=== PATIENT | female | born 1960 | race Two or more races ===

== ENCOUNTER 2019-02-13 07:54 | Emergency (ER) | payer SELFPAY ==
[~2019-02-13] VITALS: Ht 162.6 cm; Wt 90.0 kg
[2019-02-13] MEDS ORDERED: FLUORESCEIN SODIUM 1MG/STRIP LEFTEYE ONE (09:00)
[2019-02-13] MEDS ORDERED: TETRACAINE 0.5% OPHTH DROPS 4ML LEFTEYE ONE (09:00)
[2019-02-13] MEDS ORDERED: IBUPROFEN 600MG TABLET PO ONE (09:00)
[2019-02-13 10:06] VITALS: BP 142/60
== END 2019-02-13 10:10 | disposition home or self-care (01) ==
LOC: ER 08:02
DX: S05.02XA Injury of conjunctiva and corneal abrasion without foreign body, left eye, initial encounter (principal); X58.XXXA Exposure to other specified factors, initial encounter; Y93.89 Activity, other specified; Y92.89 Other specified places as the place of occurrence of the external cause; I10 Essential (primary) hypertension
CPT/HCPCS: 99283

== ENCOUNTER 2023-03-04 10:04 | Inpatient (IN) | payer OTHER ==
[~2023-03-04] VITALS: Ht 165.1 cm; Wt 97.5 kg
[2023-03-04 10:55] LABS: HEMATOCRIT. 33.5 % (36.0-48.0); HEMOGLOBIN. 10.5 g/dL (12.0-16.0); MEAN CORPUSCULAR HGB CONC 31.5 g/dL (31.0-37.0); MEAN CORPUSCULAR VOLUME 76.4 fL (81.0-99.0); MEAN PLATELET VOLUME 7.7 fl (7.4-10.4); PLATELET 332 x1000/uL (130-400); RED BLOOD CELL COUNT 4.38 mill/uL (4.2-5.4); RED CELL DISTRIBUTION WIDTH 15.9 % (11.6-14.6); WHITE BLOOD COUNT 3.7 x1000/uL (4.5-11.0)
[2023-03-04 10:57] LABS: DIFFERENTIAL COMMENT 1
[2023-03-04 11:13] LABS: ALANINE AMINOTRANSFERASE 12 IU/L (10-49); ALBUMIN 4.2 g/dL (3.2-4.8); ASPARTATE AMINOTRANSFERASE 18 IU/L (<34); BILIRUBIN TOTAL 0.4 mg/dL (0.1-1.0); CALCIUM 9.4 mg/dL (8.7-10.4); CARBON DIOXIDE 26 mEq/L (21-32); CHLORIDE 108 mEq/L (98-107); CREATININE 1.1 mg/dL (0.6-1.0); GLUCOSE 105 mg/dL (70-105); POTASSIUM 4.2 mEq/L (3.5-5.1); PROTEIN TOTAL 7.5 g/dL (6.0-8.3); SODIUM 140 mEq/L (136-145); UREA NITROGEN BLOOD 11 mg/dL (9-23)
[2023-03-04] MEDS ORDERED: ACETAMINOPHEN 325MG TABLET PO ONE (13:15)
[2023-03-04 13:16] LABS: ANISOCYTOSIS 1+; HYPOCHROMASIA 1+; MICROCYTOSIS 1+; PLATELET ESTIMATE NORMAL
[2023-03-04 17:01] LABS: TROPONIN I HIGH SENSITIVITY < 4 ng/L (3.0-34)
[2023-03-04] MEDS ORDERED: ACETAMINOPHEN 325MG TABLET PO NR (20:00)
[2023-03-04 22:00] VITALS: BP 165/69; PULSE 76; RESP 17; TEMP 97.9
[2023-03-05] VITALS (7 sets, daily range): BP systolic 124–184; BP diastolic 41–93; PULSE 56–68; RESP 17–18; TEMP 97.5–97.9
[2023-03-05] MEDS ORDERED: HYDROCODONE/ACETAMINOPHEN 5/325MG TABLET PO PRN (03:30)
[2023-03-05] MEDS ORDERED: ONDANSETRON HCL 4MG/2ML INJ IV PRN (03:30)
[2023-03-05] MEDS ORDERED: ACETAMINOPHEN 325MG TABLET PO PRN (03:30)
[2023-03-05 06:46] LABS: BASOPHILS % 0.5 % (0.0-2.0); DIFFERENTIAL COMMENT 0; EOSINOPHILS % 1.5 % (0.0-5.0); HEMATOCRIT. 32.6 % (36.0-48.0); HEMOGLOBIN. 10.5 g/dL (12.0-16.0); LYMPHOCYTES % 47.6 % (20.0-50.0); MEAN CORPUSCULAR HEMOGLOBIN 24.6 pg (28.0-32.0); MEAN CORPUSCULAR HGB CONC 32.2 g/dL (31.0-37.0); MEAN CORPUSCULAR VOLUME 76.2 fL (81.0-99.0); MEAN PLATELET VOLUME 7.7 fl (7.4-10.4); MONOCYTES % 10.2 % (2.0-8.0); NEUTROPHILS % 40.2 % (40.0-76.0); PLATELET 331 x1000/uL (130-400); RED BLOOD CELL COUNT 4.28 mill/uL (4.2-5.4); RED CELL DISTRIBUTION WIDTH 15.3 % (11.6-14.6)
[2023-03-05 07:16] LABS: CALCIUM 9.2 mg/dL (8.7-10.4); CARBON DIOXIDE 24 mEq/L (21-32); CHLORIDE 106 mEq/L (98-107); CHOLESTEROL 175 mg/dL (<200); CREATININE 1.1 mg/dL (0.6-1.0); GLUCOSE 100 mg/dL (70-105); HDL CHOLESTEROL 37 mg/dL (>65); LDL CHOLESTEROL 160 mg/dL (5-100); POTASSIUM 4.1 mEq/L (3.5-5.1); SODIUM 139 mEq/L (136-145); THYROID STIMULATING HORMONE 3.01 uIU/mL (0.55-4.78); TRIGLYCERIDE 152 mg/dL (0-150); UREA NITROGEN BLOOD 12 mg/dL (9-23)
[2023-03-05] MEDS: ENOXAPARIN 30MG/0.3ML SYR SUBCUT SCH ×2 (09:21→22:07)
[2023-03-05] MEDS ORDERED: CLOP-31 PO (09:30)
[2023-03-05] MEDS ORDERED: GABA-532 PO ×3 (09:30→15:15)
[2023-03-05] MEDS ORDERED: FAMO20TA8 PO (09:30)
[2023-03-05] MEDS ORDERED: LABE300T36 MT ×2 (09:30→18:08)
[2023-03-05] MEDS ORDERED: OMEP20CA14 MT (09:30)
[2023-03-05] MEDS ORDERED: TRAZ-251 PO (09:30)
[2023-03-05] MEDS ORDERED: METF-414 MT (09:30)
[2023-03-05] MEDS ORDERED: DEXTROSE 50% WATER 50ML SYRINGE IV PRN (13:15)
[2023-03-05 15:05] LABS: IRON 40 ug/dL (50-170); TOTAL IRON BINDING CAPACITY 365 ug/dl (250-425)
[2023-03-05] MEDS ORDERED: LIDO1ADH62 TP (15:17)
[2023-03-05] MEDS ORDERED: CLOP75TA33 PO (15:17)
[2023-03-05] MEDS ORDERED: PRIL20 PO (15:17)
[2023-03-05] MEDS ORDERED: LABE100T9 PO ×2 (15:17→15:18)
[2023-03-05] MEDS ORDERED: NALOXONE HCL 0.4MG/ML VIAL IV PRN (15:30)
[2023-03-05] MEDS: CLOPIDOGREL 75MG TABLET PO SCH (15:35)
[2023-03-05] MEDS: INSULIN LISPRO 100 UNITS/ML SUBCUT SCH ×2 (17:40→21:00)
[2023-03-05] MEDS: GABAPENTIN 300MG CAPSULE PO SCH (17:41)
[2023-03-05] MEDS: BLOOD SUGAR DIAGNOSTIC STRIP TEST SCH ×2 (17:42→21:00)
[2023-03-05] MEDS: CLONIDINE 0.1MG TABLET PO PRN (17:44)
[2023-03-05] MEDS ORDERED: LABE100T9 MT (18:08)
[2023-03-05] MEDS ORDERED: TRAZODONE HCL 50MG TABLET PO SCH (21:00)
[2023-03-05] MEDS ORDERED: ATORVASTATIN CALCIUM 40MG TABLET PO SCH (21:00)
[2023-03-06] VITALS: BP 149/66; PULSE 62; RESP 18; TEMP 98
[2023-03-06 04:00] VITALS: BP_SYST 131; BP_SYST 139; BP_DIAS 59; BP_DIAS 71; BP_DIAS 72; PULSE 59; RESP 20; TEMP 97.5
[2023-03-06] MEDS: BLOOD SUGAR DIAGNOSTIC STRIP TEST SCH ×2 (07:09→12:59)
[2023-03-06] MEDS: INSULIN LISPRO 100 UNITS/ML SUBCUT SCH ×2 (07:40→12:40)
[2023-03-06 08:00] VITALS: BP_SYST 165; BP_SYST 166; BP_SYST 177; BP_DIAS 66; BP_DIAS 82; BP_DIAS 90; PULSE 68; RESP 18; TEMP 98.1
[2023-03-06 08:34] LABS: CREATINE KINASE 129 IU/L (34-145)
[2023-03-06] MEDS ORDERED: FAMOTIDINE 20MG TABLET PO SCH (09:00)
[2023-03-06] MEDS ORDERED: GABAPENTIN 300MG CAPSULE PO SCH (09:00)
[2023-03-06] MEDS: CLOPIDOGREL 75MG TABLET PO SCH (09:49)
[2023-03-06] MEDS: GABAPENTIN 300MG CAPSULE PO SCH (09:49)
[2023-03-06] MEDS: CLONIDINE 0.1MG TABLET PO PRN (09:49)
[2023-03-06] MEDS: ENOXAPARIN 30MG/0.3ML SYR SUBCUT SCH (09:50)
[2023-03-06] MEDS ORDERED: IRON SUCROSE COMPLEX 100 MG/5 ML ML IV SCH (10:00)
[2023-03-06 12:00] VITALS: BP 148/73; PULSE 63; RESP 18; TEMP 97.7
[2023-03-06] MEDS ORDERED: FERR325T6 MT (13:30)
[2023-03-06] MEDS ORDERED: LIP40 PO (13:30)
[2023-03-06 16:05] VITALS: BP 148/73; PULSE 63; TEMP 97.7; O2SAT 100
== END 2023-03-06 16:33 | disposition home or self-care (01) | DRG 204 ==
LOC: ER 10:04 → 8WST 17:44
PROVIDERS: ADMIT Internal Medicine; ATTEND Internal Medicine
DX: R55 Syncope and collapse (principal); S09.90XA Unspecified injury of head, initial encounter; D72.821 Monocytosis (symptomatic); E11.9 Type 2 diabetes mellitus without complications; D50.9 Iron deficiency anemia, unspecified; B34.9 Viral infection, unspecified; E78.5 Hyperlipidemia, unspecified; I10 Essential (primary) hypertension; Z86.73 Personal history of transient ischemic attack (TIA), and cerebral infarction without residual deficits; Z88.0 Allergy status to penicillin; Z79.84 Long term (current) use of oral hypoglycemic drugs; X58.XXXA Exposure to other specified factors, initial encounter; Y93.89 Activity, other specified; Y92.89 Other specified places as the place of occurrence of the external cause; Y99.8 Other external cause status
CPT/HCPCS: 36415; 70551; 71045; 80048; 80053; 80061; 82164; 82550; 82728; 82962; 83036; 83540; 83550; 83735; 84443; 84484; 85025; 87426; 93005; 93306; 93880; 93970; 97161; 97166; 99285; J1650